=== PATIENT | female | born 1970 | race Caucasian/White ===

== ENCOUNTER 2023-03-15 19:29 | Emergency (ER) | payer SELFPAY ==
[~2023-03-15] VITALS: Ht 157.5 cm; Wt 72.6 kg
[2023-03-15 19:45] VITALS: BP 167/103; PULSE 103; RESP 20; TEMP 98.1; O2SAT 97
[2023-03-15] MEDS ORDERED: CLEOCIN PO STA (20:22)
[2023-03-15] MEDS ORDERED: NAPROXEN 500MG PO STA (20:22)
[2023-03-15] MEDS ORDERED: NAPROXEN 500MG PO ONE (20:27)
[2023-03-15] MEDS ORDERED: CLEOCIN ONE (20:27)
[2023-03-15 20:36] VITALS: BP 158/93; PULSE 99; RESP 8; TEMP 98.1; O2SAT 97
== END 2023-03-15 20:37 | disposition home or self-care (01) ==
LOC: ER 19:29
DX: K02.9 Dental caries, unspecified (principal); K05.10 Chronic gingivitis, plaque induced; F17.210 Nicotine dependence, cigarettes, uncomplicated; Z90.710 Acquired absence of both cervix and uterus
CPT/HCPCS: 99283